=== PATIENT | male | born 1990 | race Two or more races ===

== ENCOUNTER 2019-10-22 16:50 | Emergency (ER) | payer BC, MEDICAID ==
[~2019-10-22] VITALS: Ht 190.5 cm; Wt 83.9 kg
[2019-10-22] MEDS ORDERED: SUMAtriptan SUCCINATE 25 MG TAB PO ONE (18:45)
[2019-10-22 20:18] VITALS: BP 125/58
== END 2019-10-22 20:24 | disposition home or self-care (01) ==
LOC: ER 16:50
DX: G43.909 Migraine, unspecified, not intractable, without status migrainosus (principal); F17.210 Nicotine dependence, cigarettes, uncomplicated
CPT/HCPCS: 70450; 93005

== ENCOUNTER 2020-01-11 10:20 | Emergency (ER) | payer BC ==
[~2020-01-11] VITALS: Ht 190.5 cm; Wt 76.2 kg
[2020-01-11 10:47] VITALS: BP 111/71
== END 2020-01-11 13:21 | disposition home or self-care (01) ==
LOC: ER 10:20
DX: S02.2XXA Fracture of nasal bones, initial encounter for closed fracture (principal); S01.21XA Laceration without foreign body of nose, initial encounter; F17.210 Nicotine dependence, cigarettes, uncomplicated; W19.XXXA Unspecified fall, initial encounter; Y93.89 Activity, other specified; Y92.89 Other specified places as the place of occurrence of the external cause; Y99.8 Other external cause status
CPT/HCPCS: 12011; 70160